=== PATIENT | female | born 1970 | race Caucasian/White ===

== ENCOUNTER 2016-12-17 08:20 | Day surgery (SDC) | payer MEDICAID ==
[2016-12-17] MEDS ORDERED: LIDOCAINE 1% 30 ML SDV IF ONE (09:00)
--- NOTE | 2016-12-17 09:30 | SUROPNOTE ---
[facility] Operative Report - Surgery PROCEDURE: Linq implant INDICATION: BRADYCARDIA WITH EPISODES OF SYNCOPE PROCEDURE DETAILS: After consent was obtained, the patient was placed on table in usual fashion. Lidocaine (1%) was used for local anesthetic. After localization of the 2nd and 3rd intercostal space on the left, a small incision was made with a #12 blade. Kit included blade was then used for appropriate width of the incision. The rail delivery system with LINQ ( [id number]) was used to place the device without difficultly or complication. Three jasmyne were used for closure. Minor superficial bleeding was noted, and pressure was applied for 5 minutes. Haemostasis was achieved. No complications were noted Waveform morphology was excellent Patient was discharged to home with recommendations for Tylenol (upon arrival home) and Ice Pack. Patient to return to clinic in 5-7 days for wound inspection and staple removal.
== END 2016-12-17 09:30 | disposition home or self-care (01) ==
LOC: FCATH 08:20
PROVIDERS: ATTEND Internal Medicine Cardiovascular Disease
PROC: 0JH63PZ Insertion of Cardiac Rhythm Related Device into Chest Subcutaneous Tissue and Fascia, Percutaneous Approach (ICD-10-PCS; principal; 2016-12-17)
DX: R00.1 Bradycardia, unspecified (principal)
CPT/HCPCS: C1764